=== PATIENT | male | born 1950 | race Caucasian/White ===

== ENCOUNTER → 2021-03-17 | Outpatient (CLI) | payer MEDICARE ==
[2021-03-17 12:56] LABS: HCT 48.4 % (39.0-53.0); MCH 29.2 pg (25.0-35.0); MCV 88.3 fL (80.0-100.0); Mean Platelet Volume 7.3; Platelet Count 220 k/uL (150-450); RBC 5.48 m/uL (4.30-5.90); RDW 13.8 % (11.5-15.5); WBC 6.9 k/uL (3.8-10.6)
[2021-03-17 13:04] LABS: Appearance,Urine Clear (Clear); Bilirubin,Urine Negative (Negative); Blood,Urine Negative (Negative); Color,Urine Light Yellow; Glucose,Urine (UA) Negative (Negative); Ketones,Urine Negative (Negative); Leukocyte Esterase,Urine Negative (Negative); Nitrite,Urine Negative (Negative); Protein,Urine Negative (Negative); Specific Gravity,Urine 1.012 (1.001-1.035); Urobilinogen,Urine <2.0 mg/dL (<2.0)
[2021-03-17 13:19] LABS: ALT 18 U/L (4-49); AST 20 U/L (17-59); African American GFR (CKD) >90 (>60 ml/min/1.73 sqM); Alkaline Phosphatase 99 U/L (38-126); Anion Gap 7 mmol/L; Blood Urea Nitrogen 13 mg/dL (9-20); Calcium 9.3 mg/dL (8.4-10.2); Carbon Dioxide 28 mmol/L (22-30); Chloride 103 mmol/L (98-107); Glucose 100 mg/dL (74-99); INR 0.9 (<1.2); Non-African American GFR(CKD) 86 (>60 ml/min/1.73 sqM); Partial Thromboplastin Time 24.4 sec (22.0-30.0); Potassium 4.6 mmol/L (3.5-5.1); Prothrombin Time 10.1 sec (9.0-12.0); Sodium 138 mmol/L (137-145); Total Bilirubin 1.3 mg/dL (0.2-1.3); Total Protein 6.8 g/dL (6.3-8.2)
== END | disposition home or self-care (01) ==
LOC: LABPAT 11:38
PROVIDERS: ATTEND Orthopaedic Surgery
DX: Z01.812 Encounter for preprocedural laboratory examination (principal); Z01.818 Encounter for other preprocedural examination
CPT/HCPCS: 80053; 81003; 85027; 85610; 85730; 86850; 86900; 86901; 87070

== ENCOUNTER 2021-03-29 07:40 | Day surgery (SDC) | payer MEDICARE ==
[2021-03-24 11:54] VITALS: BMI 30.6
[~2021-03-29 07:40] MED LIST: ACETAMINOPHEN TAB 500 MG TAB PO PRN; DEXAMETHASONE SOD PHOSPHATE 4 MG/ML 1 ML VIAL IV ONE; GABAPENTIN 300 MG CAP PO PRN; HYDROcodone/APAP 7.5-325MG 1 EACH TAB PO PRN; HYDROmorphone 0.2 MG/1 ML SYRINGE IVP PRN; HYDROmorphone 0.5 MG/0.5 ML SYRINGE IVP PRN; MELOXICAM 7.5 MG TAB PO PRN; MIDAZOLAM 2 MG/2 ML VIAL IV PRN; NALOXONE 0.4 MG/ML 1 ML VIAL IV PRN; ONDANSETRON 4 MG/2 ML VIAL IVP ONE; ONDANSETRON 4 MG/2 ML VIAL IVP PRN; TRANEXAMIC ACID 1,000 MG in SODIUM CHLORIDE 0.9% 100 ML IVPB PRN
[2021-03-29] MEDS ORDERED: LACTATED RINGERS 1,000 ML IV ONE ×2 (08:13→11:35)
[2021-03-29] MEDS ORDERED: SODIUM CHLORIDE 0.9% 100 ML BAG ONE (09:14)
[2021-03-29] MEDS ORDERED: fentaNYL (PF) 50 MCG/ML 2 ML AMP ONE (09:14)
[2021-03-29] MEDS ORDERED: SODIUM CHLORIDE 0.9% IRRIG 1,000 ML BTL IRRIGATION ONE (09:14)
[2021-03-29] MEDS ORDERED: SUCCINYLCHOLINE CHLORIDE VIAL 200 MG/10 ML VIAL IV ONE (09:14)
[2021-03-29] MEDS ORDERED: LIDOCAINE 1% INJ 10MG/ML (20 ML MDV) ONE (09:14)
[2021-03-29] MEDS ORDERED: PHENYLEPHRINE-0.9% NACL SYG 1,000 MCG/10 ML SYRINGE ONE (09:14)
[2021-03-29] MEDS ORDERED: ePHEDrine SULFATE/0.9% NACL/PF 50 MG/5 ML SYRINGE IV ONE (09:14)
[2021-03-29] MEDS ORDERED: HEPARIN SODIUM,PORCINE 10,000 UNIT/ML 1 ML VIAL ONE (09:14)
[2021-03-29] MEDS ORDERED: TRANEXAMIC ACID 1,000 MG/10 ML VIAL ONE (09:14)
[2021-03-29] MEDS ORDERED: PROPOFOL 10 MG/ML 20 ML VIAL IV ONE (09:14)
[2021-03-29] MEDS ORDERED: ROCURONIUM 10 MG/ML (5 ML VIAL) IV ONE (09:14)
[2021-03-29] MEDS ORDERED: HYDROmorphone (PF) 1 MG/ML ONE (09:14)
[2021-03-29] MEDS ORDERED: MIDAZOLAM 2 MG/2 ML VIAL ONE (09:14)
[2021-03-29] MEDS: ROPIVACAINE/EPI/CLONIDINE/KET 50 ML SYRINGE MISCELLANE PRN ×2 (09:48→11:21)
[2021-03-29] MEDS ORDERED: ceFAZolin 3,000 MG in SODIUM CHLORIDE 0.9% IRRIGATIO 3,000 ML IRRIGATION ONE (09:50)
--- NOTE | 2021-03-29 11:38 | P.OP ---
Date of Procedure: 03/29/21 Preoperative Diagnosis: Severe osteoarthritis right hip Postoperative Diagnosis: Severe osteoarthritis right hip Procedure(s) Performed: Right total hip arthroplasty with a direct anterior approach Implants: [employer] Polarstem standard size 5 [employer]hew R3, 3 hole hemispherical acetabular shell, 58 mm [employer] Reflection 6.5 mm cancellus screw, 20 mm 2 [employer] R3, XLPE 20 acetabular liner [employer]hew Oxinium femoral head 36 m, +8 All components were press-fit. The articulation is Oxinium on polyethylene. Anesthesia: GETA Surgeon: Radu Venegas Mini Baccarat Dealer #1: Sofia Manley Estimated Blood Loss (ml): 2,000 (871 returned with Cell Saver) Pathology: other (Femoral head) Condition: stable Disposition: PACU Indications for Procedure: After failure of conservative treatment we discussed the surgical and nonsurgical treatment options at length. Patient wishes to proceed with a total hip arthroplasty with a direct anterior approach. Complications specific to this procedure were discussed at length, including but not limited to infection, leg length discrepancy, dislocation, nerve injury, and fracture. Covid-19 was also discussed at length with the patient, and they are aware of the current policies and procedures. The patient was given the option of delaying surgery, but they elect to proceed knowing these risks. Patient is aware of all these complications and informed consent was obtained Operative Findings: The operative findings are consistent with severe osteoarthritis of the right hip Description of Procedure: Patient was seen and evaluated in the preoperative area and the consent was reviewed. The operative site was marked with a skin marker. The patient was then brought to the operating room and given preoperative antibiotics intravenously. 1 g of Tranexamic acid was also given intravenously. A general anesthetic was administered by the anesthesia department. The patient was then placed on the [place] table with the bony prominences well-padded. The hip area was then prepped with a ChloraPrep solution and draped in the usual sterile fashion. A universal timeout was then performed, which confirmed the patient's name, surgical site, ALLERGIES, and procedure being performed on the consent. Next the incision site was located at 1 cm distal to the anterior superior iliac spine along the flexion crease of the hip. The skin and subcutaneous tissues were sharply incised. Incision was carefully dissected down to the fascia overlying the tensor fascia rebecca muscle. This fascia was then incised in line with the incision. Care was taken to stay laterally in order to avoid injuring the lateral femoral cutaneous nerve. Next, using blunt finger dissection, the tensor fascia rebecca muscle was dissected off its investing fascia. The muscle was then carefully retracted laterally with a cobra retractor over the lateral neck of the femur. Next, the circumflex vessels were identified and cauterized using the AquaMantis device. The anterior hip capsule was then exposed. The capsule was then opened and an inverted T fashion. Cobra retractors were then placed intracapsularly. The retractors were maintained intracapsular throughout the procedure. The proximal femur was then visualized. A small amount of traction was placed on the leg. The femoral neck was then osteotomized appropriate level above the lesser trochanter. A small wedge of bone was then removed from the remaining femoral head. Next, using a corkscrew the femoral head was removed from the acetabulum. On gross visual inspection, the femoral head had complete loss of articular cartilage and multiple periarticular osteophytes. The femoral head was then measured. Attention was then turned to the acetabulum. The acetabulum was exposed and any remaining labrum was excised. Sequential reaming of the acetabulum was performed using fluoroscopic guidance until there was a good bed of bleeding cancellus bone. When the appropriate size was reached, a trial was then placed. The position and fit of the trial was checked with fluoroscopy. The trial was then removed. Then, using fluoroscopic guidance, the final implant was impacted at 20 of anteversion and 40 of abduction, and fully seated in the acetabulum. 2 screws were then placed in the acetabulum. Again fluoroscopy was used to check position of the screws. Prior to the liner being inserted, large osteophytes were removed from the acetabulum. As much as the osteophytes were removed as could be done safely. Next, the liner was then impacted, with a 20 elevated liner located in the anterior superior quadrant. Component locking was confirmed. Attention was then directed to the femur. With the aid of the [place] table, the femur was externally rotated to approximately 130, extended, and adducted under the opposite leg. A side hook was then placed under the proximal femur, and the side hook elevator was used to elevate the proximal femur while releasing the capsule. Retractors were then placed. A capsular release was performed, as well as a release of the conjoined tendon, which afforded excellent visualization of the proximal femur. Next, a box osteotome was used to lateralize the proximal femur. A boat hand was then used to locate the femoral canal. Sequential broaching was then performed with appropriate size which afforded excellent fixation in the proximal femur. A trial was then placed with appropriate head and neck, and the hip was gently reduced with the aid of the [place] table. Fluoroscopy was then used to check position of the components, as well as to ensure equal leg lengths. The hip was then gently dislocated and the trials were then removed. Final implants were then impacted and the hip was again reduced. Final fluoroscopic x-rays confirmed that the components were in anatomic position, as well as equal leg lengths. The hip was also taken through range of motion, and found to be stable. The hip was then copiously irrigated with antibiotic solution with pulsatile lavage. The hip was then irrigated with Irrisept solution. The soft tissues were then injected with a ropivacaine solution, which consisted of 246.25 mg of ropivacaine, 0.5 mg of epinephrine, 30 mg of Toradol, 80 g of clonidine, and 48.45 mL of sterile water, for a total of 100 mL of fluid injected. A second do se of 1 g of Tranexamic acid was also given intravenously. Any blood collected by Cell Saver was then returned to the patient at this time. The fascia was then closed with 2-0 strata fix suture. The subcutaneous tissue was closed with 3-0 Vicryl. The subcuticular tissue was closed with 3-0 strata fix suture. The skin was then closed with Exofin skin glue. After the glue and dried, and Optifoam silver impregnated dressing was applied. The patient was then transferred to the recovery room in stable condition. The vector control assistant MOLLY Aiken was required due to the complexity of surgery, and the need for skilled surgical resident for positioning, draping, exposure, retraction, and closure of the wound.
[2021-03-29] MEDS: HYDROmorphone 0.5 MG/0.5 ML SYRINGE IVP PRN ×2 (12:21→12:25)
--- NOTE | 2021-03-29 12:33 | XR ---
Fluoroscopy History: right hip arthroplasty 96 sec fl-3 images
--- NOTE | 2021-03-29 13:07 | XR ---
EXAMINATION TYPE: XR Hip Limited RT DATE OF EXAM: 03/29/2021 CLINICAL HISTORY: Postoperative evaluation TECHNIQUE: Single portable view of the right hip was submitted. FINDINGS: Noted are changes of total hip arthroplasty with femoral and acetabular components appearin g well seated. Alignment is anatomic. Postsurgical soft tissue changes are evident. IMPRESSION: Satisfactory postoperative alignment.
[2021-03-29] MEDS: HYDROcodone/APAP 7.5-325MG 1 EACH TAB PO PRN (13:52)
[2021-03-29] MEDS ORDERED: ONDANSETRON 4 MG/2 ML VIAL IVP ONE (15:35)
[2021-03-29] MEDS ORDERED: TAMSULOSIN 0.4 MG CAP.ER.24H PO ONE (17:12)
[2021-03-29 19:26] LABS: HCT 40.5 % (39.0-53.0); HGB 13.1 gm/dL (13.0-17.5); Hypochromasia Slight; MCH 29.6 pg (25.0-35.0); MCHC 32.2 g/dL (31.0-37.0); MCV 91.9 fL (80.0-100.0); Mean Platelet Volume 7.4; Platelet Count 243 k/uL (150-450); RBC 4.41 m/uL (4.30-5.90); RDW 14.4 % (11.5-15.5); WBC 25.8 k/uL (3.8-10.6)
[2021-03-29] MEDS: LACTATED RINGERS 1,000 ML IV SCH (20:01)
[2021-03-29] MEDS ORDERED: ALBUMIN HUMAN 5% (12.5gm) 250 ML BOTTLE IVPB ONE (20:15)
[2021-03-30] MEDS: SODIUM CHLORIDE 0.9% 1,000 ML IV SCH ×3 (00:09→10:08)
[2021-03-30] MEDS: ASPIRIN 325 MG TAB PO SCH ×3 (00:30→20:15)
[2021-03-30] MEDS ORDERED: SODIUM CHLORIDE 0.9% 1,000 ML IV ONE (04:27)
[2021-03-30] MEDS: LACTATED RINGERS 1,000 ML IV SCH (07:05)
[2021-03-30] MEDS: CALCIUM CARBONATE 500 MG CHEWABLE PO PRN ×2 (08:23→13:03)
[2021-03-30] MEDS ORDERED: ACETAMINOPHEN TAB 325 MG TAB PO PRN (09:48)
[2021-03-30] MEDS: MAG HYDROX/AL HYDROX/SIMETH 30 ML CUP PO PRN ×2 (10:07→15:15)
--- NOTE | 2021-03-30 10:19 | P.CONS ---
History of Present Illness - Reason for Consult Leukocytosis - History of Present Illness Patient a pleasant 71-year-old male with a known history of multi-joint primary osteoarthritis and bilateral hip pain is admitted for elective right hip arthroplasty, successfully underwent hip arthroplasty with a direct anterior approach. Patient's pain in the right hip significantly improved. Still has pain in the left hip which will probably need operative intervention as well. Patient is hypotensive with blood pressure going as low as 87 / 51. Probably secondary to perioperative hypotension patient uses 40 mg of lisinopril at home. Patient is being discharged today asked patient to hold off on lisinopril completely until seen by primary care physician which need to be within a week and during that time patient was asked to check the blood pressure 2-3 times a day and take all the readings to primary care physician. Patient does have lightheadedness secondary to hypotension and patient received IV fluids and still receiving IV fluids. Patient does have leukocytosis as well. No evidence of infection patient doesn't have any fever chills patient didn't add any cough or dysuria. Leukocytosis appears to be reactive Review of Systems REVIEW OF SYSTEMS: CONSTITUTIONAL: No fever, no malaise, no fatigue. HEENT: No recent visual problems or hearing problems. Denied any sore throat. CARDIOVASCULAR: No chest pain, orthopnea, PND, no palpitations, no syncope. PULMONARY: No shortness of breath, no cough, no hemoptysis. GASTROINTESTINAL: No diarrhea, no nausea, no vomiting, no abdominal pain. NEUROLOGICAL: No headaches, no weakness, no numbness. HEMATOLOGICAL: Denies any bleeding or petechiae. GENITOURINARY: Denies any burning micturition, frequency, or urgency. MUSCULOSKELETAL/RHEUMATOLOGICAL: Denies any joint pain, swelling, or any muscle pain. ENDOCRINE: Denies any polyuria or polydipsia. The rest of the 14-point review of systems is negative. Past Medical History Past Medical History: Hyperlipidemia, Hypertension, Osteoarthritis (OA) Additional Past Medical History / Comment(s): HIP PAIN History of Any Multi-Drug Resistant Organisms: None Reported Additional Past Surgical History / Comment(s): CYSTOSCOPY - CHECKING BLADDER" Past Anesthesia/Blood Transfusion Reactions: No Reported Reaction Past Psychological History: Depression Additional Psychological History / Comment(s): PAST HISTORY OF DEPRESSION Smoking Status: Never smoker Past Alcohol Use History: Rare Past Drug Use History: None Reported - Past Family History Mother Family Medical History: Cancer Additional Family Medical History / Comment(s): LUNG CANCER Medications and Allergies Home Medications Medication Instructions Recorded Confirmed Type Acetaminophen Tab [Tylenol] 650 mg PO Q6H PRN 03/24/21 03/24/21 History Garlic 1 each PO DAILY 03/24/21 03/24/21 History L.acidoph,Paracasei, B.lactis 1 each PO DAILY 03/24/21 03/24/21 History [Probiotic] Magnesium Oxide [[place]] 500 mg PO DAILY 03/24/21 03/24/21 History Saw [place] 500 mg PO DAILY 03/24/21 03/24/21 History Turmeric Root Extract [Turmeric] 500 mg PO DAILY 03/24/21 03/24/21 History Ubidecarenone [Co Q-10] 100 mg PO DAILY 03/24/21 03/24/21 History Aspirin 325 mg PO BID #60 tab 03/29/21 Rx Celecoxib [CeleBREX] 200 mg PO DAILY 5 Days #5 capsule 03/29/21 Rx Gabapentin 300 mg PO BID 5 Days #10 cap 03/29/21 Rx HYDROcodone/APAP 7.5-325MG [[place] 1 - 2 tab PO Q6H PRN #32 tab 03/29/21 Rx 7.5-325] Ondansetron Odt [Zofran Odt] 1 tab PO Q8HR PRN #10 tab 03/29/21 Rx Sennosides [Senokot] 2 tab PO DAILY PRN #60 tablet 03/29/21 Rx Allergies Allergy/AdvReac Type Severity Reaction Status Date / Time adhesive tape AdvReac RED SKIN Verified 03/24/21 11:03 AND ITCHING Physical Exam Vitals: Vital Signs Temp Pulse Pulse Resp BP BP Pulse Ox 03/30/21 09:55 102 H 91/55 03/30/21 07:54 97.8 F 101 H 16 98/62 98 03/30/21 03:03 87/51 03/30/21 02:59 97.7 F 90 18 89/48 95 03/29/21 21:56 97.5 F L 82 17 108/66 99 03/29/21 21:45 18 03/29/21 20:56 86 16 109/70 100 03/29/21 20:30 81 14 95/62 99 03/29/21 20:10 83 16 90/57 99 03/29/21 19:55 83 16 91/59 97 03/29/21 19:50 79 14 82/52 97 03/29/21 19:30 83 14 96/63 100 03/29/21 19:10 84 14 92/62 99 03/29/21 19:00 83 16 98/65 100 03/29/21 18:45 84 16 101/66 96 03/29/21 18:40 85 20 97/65 96 03/29/21 18:35 102 H 22 88/55 94 L 03/29/21 17:55 83 16 99/66 99 03/29/21 16:03 79 16 116/75 95 03/29/21 15:03 79 16 116/75 95 03/29/21 14:48 83 18 109/73 95 03/29/21 14:23 81 18 111/74 94 L 03/29/21 14:00 83 20 109/72 96 03/29/21 13:50 92 20 85/55 96 03/29/21 13:16 96 03/29/21 13:15 90 18 90/60 88 L 03/29/21 13:03 97 18 105/70 94 L 03/29/21 12:45 97 18 115/73 96 03/29/21 12:30 91 16 117/73 99 03/29/21 12:16 99 18 116/70 100 03/29/21 12:03 98.4 F 102 H 16 118/73 100 Intake and Output 03/29/21 03/30/21 03/30/21 22:59 06:59 14:59 Intake Total 750 Balance 750 Intake: IV 750 Other: Voiding Method Toilet Weight 111.2 kg PHYSICAL EXAMINATION: GENERAL: The patient is alert and oriented x3, not in any acute distress. Well developed, well nourished. HEENT: Pupils are round and equally reacting to light. EOMI. No scleral icterus. No conjunctival pallor. Normocephalic, atraumatic. No pharyngeal erythema. No thyromegaly. CARDIOVASCULAR: S1 and S2 present. No murmurs, rubs, or gallops. PULMONARY: Chest is clear to auscultation, no wheezing or crackles. ABDOMEN: Soft, nontender, nondistended, normoactive bowel sounds. No palpable organomegaly. MUSCULOSKELETAL: Deferred to orthopedic surgery EXTREMITIES: No cyanosis, clubbing, or pedal edema. NEUROLOGICAL: Gross neurological examination did not reveal any focal deficits. SKIN: No rashes. Results CBC & Chem 7: 03/29/21 19:10 Labs: Abnormal Lab Results - Last 24 Hours (Table) 03/29/21 Range/Units 19:10 WBC 25.8 H (3.8-10.6) k/uL Assessment and Plan Plan: -Leukocytosis: Reactive secondary to surgery no further intervention is necessary at this time -Hypotension: Expected and perioperative hypotension management as mentioned in the interval history -Essential hypertension history -Right hip arthroplasty and patient is being discharged on 325 twice a day of aspirin as DVT prophylaxis -Multi-joint primary osteoarthritis age-related
--- NOTE | 2021-03-30 12:29 | P.PN ---
Subjective Progress Note Date: 03/30/21 Principal diagnosis: Primary osteoarthritis right hip. Status post total Right hip arthroplasty, direct anterior approach. This is a pleasant 71-year-old male who is postop day #1 status post total right hip arthroplasty with direct anterior approach. He is not feeling well today. He states that his heartburn is severe this morning. When getting up off the chair his heart rate increased and blood pressure dropped. He has slight dizziness. Heart rate 102 blood pressure 91/55. He is afebrile. Objective - Vital Signs Vital signs: Vital Signs Temp 97.8 F 03/30/21 07:54 Pulse 102 H 03/30/21 09:55 Resp 16 03/30/21 07:54 BP 91/55 03/30/21 09:55 Pulse Ox 98 03/30/21 07:54 Intake & Output 03/29/21 03/30/21 03/30/21 18:59 06:59 18:59 Intake Total 3051 700 Output Total 1999 Balance 1051 700 Weight 111.2 kg 111.2 kg Intake: IV 3051 700 Output: Estimated Blood Loss 1999 Other: Voiding Method Toilet Toilet - Exam This is a 71-year-old male in no acute distress. He is alert and oriented. He is sitting up in the chair. His right hip dressing is clean, dry and intact. He has full foot and ankle motion bilaterally. Neurovascular status to the lower extremities is intact. - Labs CBC & Chem 7: 03/29/21 19:10 Labs: Abnormal Lab Results - Last 24 Hours (Table) 03/29/21 Range/Units 19:10 WBC 25.8 H (3.8-10.6) k/uL Assessment and Plan (1) Primary osteoarthritis of right hip Current Visit: Yes Status: Acute Code(s): M16.11 - UNILATERAL PRIMARY OSTEOARTHRITIS, RIGHT HIP SNOMED Code(s): 060868110130658 (2) Status post total hip replacement, right Current Visit: Yes Status: Acute Code(s): Z96.641 - PRESENCE OF RIGHT ARTIFICIAL HIP JOINT SNOMED Code(s): 012556176157 Plan: The clinical findings are discussed with the patient. Stat 12-lead EKG is ordered. Maalox is ordered for his heartburn. He'll most likely stay inpatient until tomorrow. Continue current care and continue to observe his symptoms. CBC ordered.
[2021-03-30 13:06] LABS: Basophils % (A) 0 %; Eosinophils % (A) 0 %; HCT 27.7 % (39.0-53.0); Lymphocytes # (A) 0.9 k/uL (1.0-4.8); Lymphocytes % (A) 7 %; MCH 30.8 pg (25.0-35.0); MCHC 34.8 g/dL (31.0-37.0); MCV 88.6 fL (80.0-100.0); Mean Platelet Volume 7.6; Monocytes # (A) 0.9 k/uL (0-1.0); Monocytes % (A) 6 %; Neutrophils # (A) 12.1 k/uL (1.3-7.7); Neutrophils % (A) 86 %; Platelet Count 171 k/uL (150-450); RBC 3.13 m/uL (4.30-5.90); RDW 14.3 % (11.5-15.5); WBC 14.1 k/uL (3.8-10.6)
[2021-03-30 13:11] LABS: HGB 9.7 gm/dL (13.0-17.5)
[2021-03-30] MEDS: HYDROcodone/APAP 7.5-325MG 1 EACH TAB PO PRN (15:14)
[2021-03-31 01:32] VITALS: RESP 16
[2021-03-31] MEDS: SODIUM CHLORIDE 0.9% 1,000 ML IV SCH (02:02)
[2021-03-31] MEDS: HYDROcodone/APAP 7.5-325MG 1 EACH TAB PO PRN ×2 (02:56→10:03)
[2021-03-31] MEDS: LACTATED RINGERS 1,000 ML IV SCH (05:14)
[2021-03-31 07:52] LABS: HCT 26.2 % (39.0-53.0); HGB 8.9 gm/dL (13.0-17.5); MCH 30.1 pg (25.0-35.0); MCV 88.7 fL (80.0-100.0); Mean Platelet Volume 7.6; Platelet Count 168 k/uL (150-450); RBC 2.96 m/uL (4.30-5.90); RDW 14.1 % (11.5-15.5); WBC 10.5 k/uL (3.8-10.6)
[2021-03-31 08:01] VITALS: BP 153/73; PULSE 99; TEMP 99.3
[2021-03-31] MEDS ORDERED: MAGNESIUM OXIDE 400 MG TAB PO SCH (09:00)
--- NOTE | 2021-03-31 09:32 | P.PN ---
Subjective Patient a pleasant 71-year-old male with a known history of multi-joint primary osteoarthritis and bilateral hip pain is admitted for elective right hip arthroplasty, successfully underwent hip arthroplasty with a direct anterior approach. Patient's pain in the right hip significantly improved. Still has pain in the left hip which will probably need operative intervention as well. Patient is hypotensive with blood pressure going as low as 87 / 51. Probably secondary to perioperative hypotension patient uses 40 mg of lisinopril at home. Patient is being discharged today asked patient to hold off on lisinopril completely until seen by primary care physician which need to be within a week and during that time patient was asked to check the blood pressure 2-3 times a day and take all the readings to primary care physician. Patient does have lightheadedness secondary to hypotension and patient received IV fluids and still receiving IV fluids. Patient does have leukocytosis as well. No evidence of infection patient doesn't have any fever chills patient didn't add any cough or dysuria. Leukocytosis appears to be reactive. 03/31/2021 Blood pressure is improving probably will require lisinopril but at a lower dose patient will be discharged on 10 mg of lisinopril patient by blood cell count has come down patient probably will be discharged today pain is better controlled today. Constitutional: Denied any fatigue denied any fever. Cardio vascular: denied any chest pain, palpitations Gastrointestinal denied any nausea vomiting Pulmonary: Denied any shortness of breath cough Neurologic denied any new focal deficits All inpatient medications were reviewed and appropriate changes in these medications as dictated in the interval history and assessment and plan. Objective - Vital Signs Vital signs: Vital Signs Temp 99.3 F 03/31/21 08:00 Pulse 99 03/31/21 08:00 Resp 16 03/31/21 08:00 BP 153/73 03/31/21 08:00 Pulse Ox 97 03/31/21 08:00 Intake & Output 03/30/21 03/31/21 03/31/21 18:59 06:59 18:59 Other: Voiding Method Toilet Toilet # Voids 5 2 - Exam PHYSICAL EXAMINATION: GENERAL: The patient is alert and oriented x3, not in any acute distress. Well developed, well nourished. HEENT: Pupils are round and equally reacting to light. EOMI. No scleral icterus. No conjunctival pallor. Normocephalic, atraumatic. No pharyngeal erythema. No thyromegaly. CARDIOVASCULAR: S1 and S2 present. No murmurs, rubs, or gallops. PULMONARY: Chest is clear to auscultation, no wheezing or crackles. ABDOMEN: Soft, nontender, nondistended, normoactive bowel sounds. No palpable organomegaly. MUSCULOSKELETAL: Deferred to orthopedic surgery EXTREMITIES: No cyanosis, clubbing, or pedal edema. NEUROLOGICAL: Gross neurological examination did not reveal any focal deficits. SKIN: No rashes. - Labs CBC & Chem 7: 03/31/21 06:47 Labs: Abnormal Lab Results - Last 24 Hours (Table) 03/30/21 03/31/21 Range/Units 12:25 06:47 WBC 14.1 H (3.8-10.6) k/uL RBC 3.13 L 2.96 L (4.30-5.90) m/uL Hgb 9.7 L D 8.9 L (13.0-17.5) gm/dL Hct 27.7 L 26.2 L (39.0-53.0) % Neutrophils # 12.1 H (1.3-7.7) k/uL Lymphocytes # 0.9 L (1.0-4.8) k/uL Assessment and Plan Plan: -Leukocytosis: Reactive secondary to surgery no further intervention is necessary at this time. Leukocytosis improved -Hypotension: Expected and perioperative hypotension management as mentioned in the interval history -Essential hypertension -Right hip arthroplasty and patient is being discharged on 325 twice a day of aspirin as DVT prophylaxis -Multi-joint primary osteoarthritis age-related
[2021-03-31] MEDS: ASPIRIN 325 MG TAB PO SCH (09:56)
--- NOTE | 2021-03-31 10:05 | P.DS ---
Providers Expected date of discharge: 03/31/21 Attending physician: Radu Venegas Consults: 03/29/21 12:35 Consult Physician Routine Consulting Provider: Juve Carver Consult Reason/Comments: medical management if pt does not d/c same day post op. Do you want consulting provider notified?: Yes Primary care physician: Avery Gillespie - Discharge Diagnosis(es) (1) Primary osteoarthritis of right hip Current Visit: Yes Status: Acute (2) Status post total hip replacement, right Current Visit: Yes Status: Acute Hospital Course: This is a 71-year-old male with known history of degenerative arthritis of the right hip. The patient presented for evaluation as an outpatient. After discussion and consideration patient elects to proceed with total hip arthroplasty. The patient is seen preoperatively by Dr. Venegas and medically cleared for surgery by their primary care physician. Patient is admitted to [facility] on 03/29/2021 for total hip arthroplasty. The procedure is performed without complication or sequelae. The patient is doing well postoperatively. Labs and vital signs are stable on day of discharge. On day of discharge patient's hip incision is healing well. There is minimal erythema. There is no drainage noted at this time. There is minimal soft tissue swelling to the hip and thigh. Patient has full foot and ankle motion without difficulty or pain. Calf is soft and nontender to palpation. Neurovascular status to the right lower extremity is intact. Patient is discharged home in good condition. Opioid start talking form is reviewed and signed. Please see med rec for accurate list of home medications. Plan - Discharge Summary Discharge Rx Participant: Yes New Discharge Prescriptions: New Celecoxib [CeleBREX] 200 mg PO DAILY 5 Days #5 capsule Lisinopril [Prinivil] 10 mg PO DAILY #30 tab Aspirin 325 mg PO BID #60 tab Gabapentin 300 mg PO BID 5 Days #10 cap HYDROcodone/APAP 7.5-325MG [[place] 7.5-325] 1 - 2 tab PO Q6H PRN #32 tab PRN Reason: Pain Sennosides [Senokot] 2 tab PO DAILY PRN #60 tablet PRN Reason: Constipation Ondansetron Odt [Zofran Odt] 1 tab PO Q8HR PRN #10 tab PRN Reason: Nausea Discontinued lisinopriL [Zestril] 40 mg PO DAILY No Action Magnesium Oxide [[place]] 500 mg PO DAILY L.acidoph,Paracasei, B.lactis [Probiotic] 1 each PO DAILY Turmeric Root Extract [Turmeric] 500 mg PO DAILY [place] 500 mg PO DAILY Ubidecarenone [Co Q-10] 100 mg PO DAILY Garlic 1 each PO DAILY Acetaminophen Tab [Tylenol] 650 mg PO Q6H PRN PRN Reason: Pain Discharge Medication List Acetaminophen Tab [Tylenol] 650 mg PO Q6H PRN 03/24/21 [History] Garlic 1 each PO DAILY 03/24/21 [History] L.acidoph,Paracasei, B.lactis [Probiotic] 1 each PO DAILY 03/24/21 [History] Magnesium Oxide [[place]] 500 mg PO DAILY 03/24/21 [History] Saw [place] 500 mg PO DAILY 03/24/21 [History] Turmeric Root Extract [Turmeric] 500 mg PO DAILY 03/24/21 [History] Ubidecarenone [Co Q-10] 100 mg PO DAILY 03/24/21 [History] Aspirin 325 mg PO BID #60 tab 03/29/21 [Rx] Celecoxib [CeleBREX] 200 mg PO DAILY 5 Days #5 capsule 03/29/21 [Rx] Gabapentin 300 mg PO BID 5 Days #10 cap 03/29/21 [Rx] HYDROcodone/APAP 7.5-325MG [[place] 7.5-325] 1 - 2 tab PO Q6H PRN #32 tab 03/29/21 [Rx] Ondansetron Odt [Zofran Odt] 1 tab PO Q8HR PRN #10 tab 03/29/21 [Rx] Sennosides [Senokot] 2 tab PO DAILY PRN #60 tablet 03/29/21 [Rx] Lisinopril [Prinivil] 10 mg PO DAILY #30 tab 03/31/21 [Rx] Follow up Appointment(s)/Referral(s): Avery Gillespie III, MD [Primary Care Provider] - 04/04/21 2:30 pm [facility], [NON-STAFF] - As Needed Radu Venegas DO [Doctor of Osteopathic Medicine] - 04/13/21 9:50 am Patient Instructions/Handouts: *Surgery [facility] - (Anesthesia) Discharge Instructions Outpatient Surgery, How to Use an Incentive Spirometer (DC), Anterior Hip Replacement (DC) Activity/Diet/Wound Care/Special Instructions: Weightbearing as tolerated with walker. Leave dressing intact. Dressing may be removed by home care nurse or by patient in 10 days. May shower with dressing on. If dressing become saturated, please remove. Please take aspirin 325mg twice daily for 30 days to prevent blood clots. Recommend use of compression stockings daily until follow up to help prevent swelling and blood clots. May remove at night before sleeping. Please follow-up with [facility] in 2 weeks and call with any questions or concerns, . Discharge Disposition: HOME WITH HOME HEALTH SERVICES
== END 2021-03-31 11:53 | disposition home health service (06) ==
LOC: OR 07:40 → UNDOADMOB 12:08 → 4SSUR 12:08 → OR 19:05
PROVIDERS: ATTEND Orthopaedic Surgery
DX: M16.0 Bilateral primary osteoarthritis of hip (principal); M25.751 Osteophyte, right hip; I10 Essential (primary) hypertension; R12 Heartburn; E78.5 Hyperlipidemia, unspecified; I95.9 Hypotension, unspecified; H91.90 Unspecified hearing loss, unspecified ear; R45.0 Nervousness; Z20.822 Contact with and (suspected) exposure to COVID-19; Z97.3 Presence of spectacles and contact lenses; R26.81 Unsteadiness on feet; Z86.19 Personal history of other infectious and parasitic diseases; Z82.49 Family history of ischemic heart disease and other diseases of the circulatory system; Z80.1 Family history of malignant neoplasm of trachea, bronchus and lung; Z98.890 Other specified postprocedural states; Z79.82 Long term (current) use of aspirin; Z79.1 Long term (current) use of non-steroidal anti-inflammatories (NSAID); Z79.891 Long term (current) use of opiate analgesic; Z79.899 Other long term (current) drug therapy; Z91.09 Other allergy status, other than to drugs and biological substances
CPT/HCPCS: 27130; 93005; 97116; 97110; 97530 ×2; 97161; 97535; 97165; 86891; 85025; 85027 ×2; 88300; 87635; 73501; C1776; P9045; J2250; J0330; J1644; J1100; J0690 ×2; J2405 ×2; J2001; J3010; J1170 ×3; J2370; J2704; 86850; 86900; 86901

== ENCOUNTER → 2021-08-05 | Outpatient (CLI) | payer MEDICARE ==
[2021-08-05 12:23] LABS: Appearance,Urine Clear (Clear); Bilirubin,Urine Negative (Negative); Blood,Urine Negative (Negative); Color,Urine Light Yellow; Glucose,Urine (UA) Negative (Negative); Ketones,Urine Negative (Negative); Leukocyte Esterase,Urine Negative (Negative); Nitrite,Urine Negative (Negative); PH, Urine 6.5 (5.0-8.0); Protein,Urine Negative (Negative); Specific Gravity,Urine 1.011 (1.001-1.035); Urobilinogen,Urine <2.0 mg/dL (<2.0)
[2021-08-05 12:56] LABS: HCT 45.5 % (39.0-53.0); MCV 88.1 fL (80.0-100.0); Mean Platelet Volume 7.5; Platelet Count 240 k/uL (150-450); RBC 5.16 m/uL (4.30-5.90); RDW 14.4 % (11.5-15.5); WBC 6.1 k/uL (3.8-10.6)
[2021-08-05 13:05] LABS: INR 0.9 (<1.2); Partial Thromboplastin Time 24.8 sec (22.0-30.0)
[2021-08-05 13:22] LABS: ALT 13 U/L (4-49); AST 19 U/L (17-59); African American GFR (CKD) >90 (>60 ml/min/1.73 sqM); Albumin 3.5 g/dL (3.5-5.0); Alkaline Phosphatase 88 U/L (38-126); Anion Gap 8 mmol/L; Blood Urea Nitrogen 17 mg/dL (9-20); Calcium 8.9 mg/dL (8.4-10.2); Carbon Dioxide 23 mmol/L (22-30); Chloride 107 mmol/L (98-107); Glucose 103 mg/dL (74-99); Non-African American GFR(CKD) 87 (>60 ml/min/1.73 sqM); Potassium 4.7 mmol/L (3.5-5.1); Sodium 138 mmol/L (137-145); Total Bilirubin 1.1 mg/dL (0.2-1.3); Total Protein 6.2 g/dL (6.3-8.2)
== END | disposition home or self-care (01) ==
LOC: LABPAT 10:40
PROVIDERS: ATTEND Orthopaedic Surgery
DX: Z01.812 Encounter for preprocedural laboratory examination (principal)
CPT/HCPCS: 36415; 80053; 81003; 85027; 85610; 85730; 87070

== ENCOUNTER 2021-08-16 09:38 | Day surgery (SDC) | payer MEDICARE ==
[2021-08-11 17:54] VITALS: BMI 30.9
[~2021-08-16 09:38] MED LIST changes: -DEXAMETHASONE SOD PHOSPHATE 4 MG/ML 1 ML VIAL IV ONE; -HYDROcodone/APAP 7.5-325MG 1 EACH TAB PO PRN; -HYDROmorphone 0.2 MG/1 ML SYRINGE IVP PRN; -MIDAZOLAM 2 MG/2 ML VIAL IV PRN; -NALOXONE 0.4 MG/ML 1 ML VIAL IV PRN; -ONDANSETRON 4 MG/2 ML VIAL IVP PRN
[2021-08-16] MEDS ORDERED: LACTATED RINGERS 1,000 ML IV ONE (10:12)
[2021-08-16] MEDS ORDERED: NALOXONE 0.4 MG/ML 1 ML VIAL IV PRN (10:48)
[2021-08-16] MEDS ORDERED: HYDROmorphone 0.2 MG/1 ML SYRINGE IVP PRN (10:48)
[2021-08-16] MEDS ORDERED: ONDANSETRON 4 MG/2 ML VIAL IVP PRN (10:48)
[2021-08-16] MEDS ORDERED: MAGNESIUM HYDROXIDE 2,400 MG/10 ML CUP PO PRN (10:48)
[2021-08-16] MEDS ORDERED: HYDROmorphone 0.5 MG/0.5 ML SYRINGE IVP PRN ×2 (10:48)
[2021-08-16] MEDS ORDERED: HYDROcodone/APAP 7.5-325MG 1 EACH TAB PO PRN (10:51)
[2021-08-16] MEDS ORDERED: SODIUM CHLORIDE 0.9% IRRIG 1,000 ML BTL IRRIGATION ONE (11:01)
[2021-08-16] MEDS ORDERED: TRANEXAMIC ACID 1,000 MG/10 ML VIAL ONE (11:01)
[2021-08-16] MEDS ORDERED: HEPARIN SODIUM,PORCINE 10,000 UNIT/ML 1 ML VIAL ONE (11:01)
[2021-08-16] MEDS ORDERED: ePHEDrine SULFATE/0.9% NACL/PF 50 MG/5 ML SYRINGE IV ONE (11:01)
[2021-08-16] MEDS ORDERED: PHENYLEPHRINE-0.9% NACL SYG 1,000 MCG/10 ML SYRINGE ONE (11:01)
[2021-08-16] MEDS ORDERED: PROPOFOL 10 MG/ML 20 ML VIAL IV ONE (11:01)
[2021-08-16] MEDS ORDERED: fentaNYL (PF) 50 MCG/ML 2 ML AMP ONE (11:01)
[2021-08-16] MEDS ORDERED: MIDAZOLAM 2 MG/2 ML VIAL ONE (11:01)
[2021-08-16] MEDS ORDERED: SODIUM CHLORIDE 0.9% 100 ML BAG ONE (11:01)
[2021-08-16] MEDS ORDERED: ceFAZolin 1,000 MG in SODIUM CHLORIDE 0.9% 1,000 ML IRRIGATION ONE (11:06)
[2021-08-16] MEDS: ROPIVACAINE/EPI/CLONIDINE/KET 50 ML SYRINGE MISCELLANE PRN ×2 (11:46→12:32)
--- NOTE | 2021-08-16 12:40 | P.OP ---
Date of Procedure: 08/16/21 Preoperative Diagnosis: Severe osteoarthritis left hip Postoperative Diagnosis: Severe osteoarthritis left hip Procedure(s) Performed: Left total hip arthroplasty a direct anterior approach Implants: [employer] Polarstem standard size 5 [employer] R3, 3 hole hemispherical acetabular shell, 60 mm [employer] Reflection 6.5 mm cancellus screw, 25 mm 2 [employer] R3, XLPE 20 acetabular liner [employer] Oxinium femoral head 36 m, +0 All components were press-fit. The articulation is Oxinium on polyethylene. Anesthesia: spinal Surgeon: Radu Venegas Beef Boner #1: Radu Venegas Estimated Blood Loss (ml): 500 (195 mL returned with Cell Saver) Pathology: other (Femoral head) Condition: stable Disposition: PACU Indications for Procedure: After failure of conservative treatment we discussed the surgical and nonsurgical treatment options at length. Patient wishes to proceed with a total hip arthroplasty with a direct anterior approach. Complications specific to this procedure were discussed at length, including but not limited to infection, leg length discrepancy, dislocation, nerve injury, and fracture. Covid-19 was also discussed at length with the patient, and they are aware of the current policies and procedures. The patient was given the option of delaying surgery, but they elect to proceed knowing these risks. Patient is aware of all these complications and informed consent was obtained Operative Findings: The operative findings are consistent with severe osteoarthritis of the left hip Description of Procedure: Patient was seen and evaluated in the preoperative area and the consent was reviewed. The operative site was marked with a skin marker. The patient was then brought to the operating room and given preoperative antibiotics intravenously. 1 g of Tranexamic acid was also given intravenously. A spinal anesthetic was administered by the anesthesia department. The patient was then placed on the [place] table with the bony prominences well-padded. The hip area was then prepped with a ChloraPrep solution and draped in the usual sterile fashion. A universal timeout was then performed, which confirmed the patient's name, surgical site, ALLERGIES, and procedure being performed on the consent. Next the incision site was located at 1 cm distal to the anterior superior iliac spine along the flexion crease of the hip. The skin and subcutaneous tissues were sharply incised. Incision was carefully dissected down to the fascia overlying the tensor fascia rebecca muscle. This fascia was then incised in line with the incision. Care was taken to stay laterally in order to avoid injuring the lateral femoral cutaneous nerve. Next, using blunt finger dissection, the tensor fascia rebecca muscle was dissected off its investing fascia. The muscle was then carefully retracted laterally with a cobra retractor over the lateral neck of the femur. Next, the circumflex vessels were identified and cauterized using the AquaMantis device. The anterior hip capsule was then exposed. The capsule was then opened and an inverted T fashion. Cobra retractors were then placed intracapsularly. The retractors were maintained intracapsular throughout the procedure. The proximal femur was then visualized. A small amount of traction was placed on the leg. The femoral neck was then osteotomized appropriate level above the lesser trochanter. A small wedge of bone was then removed from the remaining femoral head. Next, using a corkscrew the femoral head was removed from the acetabulum. On gross visual inspection, the femoral head had complete loss of articular cartilage and multiple periarticular osteophytes. The femoral head was then measured. Attention was then turned to the acetabulum. The acetabulum was exposed and any remaining labrum was excised. Sequential reaming of the acetabulum was performed using fluoroscopic guidance until there was a good bed of bleeding cancellus bone. When the appropriate size was reached, a trial was then placed. The position and fit of the trial was checked with fluoroscopy. The trial was then removed. Then, using fluoroscopic guidance, the final implant was impacted at 20 of anteversion and 40 of abduction, and fully seated in the acetabulum. 2 screws were then placed in the acetabulum. Again fluoroscopy was used to check position of the screws. Next, the liner was then impacted, with a 20 elevated liner located in the anterior superior quadrant. Component locking was confirmed. Attention was then directed to the femur. With the aid of the [place] table, the femur was externally rotated to approximately 130, extended, and adducted under the opposite leg. A side hook was then placed under the proximal femur, and the side hook elevator was used to elevate the proximal femur while releasing the capsule. Retractors were then placed. A capsular release was performed, as well as a release of the conjoined tendon, which afforded excellent visualization of the proximal femur. Next, a box osteotome was used to lateralize the proximal femur. A cleaning handyman was then used to locate the femoral canal. Sequential broaching was then performed with appropriate size which afforded excellent fixation in the proximal femur. A trial was then placed with appropriate head and neck, and the hip was gently reduced with the aid of the [place] table. Fluoroscopy was then used to check position of the components, as well as to ensure equal leg lengths. The hip was then gently dislocated and the trials were then removed. Final implants were then impacted and the hip was again reduced. Final fluoroscopic x-rays confirmed that the components were in anatomic position, as well as equal leg lengths. The hip was also taken through range of motion, and found to be stable. The hip was then copiously irrigated with antibiotic solution with pulsatile lavage. The hip was then irrigated with Irrisept solution. The soft tissues were then injected with a ropivacaine solution, which consisted of 246.25 mg of ropivacaine, 0.5 mg of epinephrine, 30 mg of Toradol, 80 g of clonidine, and 48.45 mL of sterile water, for a total of 100 mL of fluid injected. A second dose of 1 g of Tranexamic acid was also given intravenously. Any blood collected by Cell Saver was then returned to the patient at this time. The fascia was then closed with 2-0 strata fix suture. The subcutaneous tissue was closed with 3-0 Vicryl. The subcuticular tissue was closed with 3-0 strata fix suture. The skin was then closed with Exofin skin glue. After the glue and dried, and Optifoam silver impregnated dressing was applied. The patient was then transferred to the recovery room in stable condition. The bilingual office assistant MOLLY Aiken was required due to the complexity of surgery, and the need for skilled director surgical for positioning, draping, exposure, retraction, and closure of the wound.
--- NOTE | 2021-08-16 13:29 | XR ---
EXAMINATION TYPE: XR Hip Limited LT DATE OF EXAM: 08/16/2021 COMPARISON: None HISTORY: Postop replacement TECHNIQUE: AP left hip FINDINGS: Femoral prosthesis and acetabular component is in place. No acute fractures are evident. Po stsurgical soft tissue changes are present. IMPRESSION: 1. No acute fracture post left hip replacement
[2021-08-16] MEDS ORDERED: GABAPENTIN 300 MG CAP PO PRN (13:32)
--- NOTE | 2021-08-16 13:57 | XR ---
Fluoroscopy INDICATION: Pain FINDINGS: Fluoroscopy time: 0.6 seconds. Images obtained: 5. IMPRESSIONS: 1. Documentation of fluoroscopy.
[2021-08-16] MEDS: LACTATED RINGERS 1,000 ML IV SCH (14:07)
[2021-08-16] MEDS: SODIUM CHLORIDE 0.9% 1,000 ML IV SCH (14:07)
--- NOTE | 2021-08-16 14:23 | FL ---
Fluoroscopy INDICATION: Pain FINDINGS: Fluoroscopy time: 36 seconds. Images obtained: 0. IMPRESSIONS: 1. Documentation of fluoroscopy.
[2021-08-16] MEDS: HYDROcodone/APAP 7.5-325MG 1 EACH TAB PO PRN (17:27)
[2021-08-16] MEDS: ASPIRIN 325 MG TAB PO SCH (19:44)
--- NOTE | 2021-08-16 19:49 | CONS ---
CONSULTATION DATE OF SERVICE: 08/16/2021. REASON FOR CONSULTATION: Advice regarding hypertension, multiple medical issues requested by Dr. Venegas. HISTORY OF PRESENT ILLNESS: This 71-year-old gentleman with past medical history of hypertension, hyperlipidemia, GERD, DJD being followed Dr. Gillespie in the outpatient setting, underwent left total hip joint arthroplasty by direct anterior approach. The patient tolerated the procedure well. During the last surgery, the patient had apparently presyncope and also hypotension related to anemia, but currently the hemoglobin is not available. The preop hemoglobin is 15. There is no history of fever, rigors, no headache, loss of conscious or seizures at this time. PAST MEDICAL HISTORY: History of hypertension, hyperlipidemia, history of DJD, history of GERD, history of previous postop hypotension. MEDICATIONS: Medications prior to admission include: Prinivil, probiotic, [place], Tylenol Senokot, Zofran, Neurontin, gabapentin, aspirin. ALLERGIES: ADHESIVE TAPE. FAMILY HISTORY: Lung cancer in the family. SOCIAL HISTORY: No history of smoking. No history of alcohol intake. REVIEW OF SYSTEMS: ENT: No diminished vision. No diminished hearing. CARDIOVASCULAR: No angina or palpitations. RESPIRATION: No cough. No hemoptysis. GI no nausea or vomiting. no dysuria. NERVOUS SYSTEM: No numbness, weakness. ALLERGY/IMMUNOLOGY: No asthma or hayfever. MUSCULOSKELETAL as mentioned earlier. HEMATOLOGY/ONCOLOGY: No history of anemia. ENDOCRINE: No history of diabetes or hypothyroidism. CONSTITUTIONAL: As mentioned earlier. DERMATOLOGY: Negative. RHEUMATOLOGY negative. PSYCHIATRY is negative. PHYSICAL EXAMINATION: Patient is alert, oriented times three. Pulse 67, blood pressure 127/72, respiration 20, temperature normal, pulse ox 93% on room air. HEENT: Conjunctivae normal. Oral mucosa moist. NECK is no jugular venous distention. No carotid bruit. No lymph node enlargement. CARDIOVASCULAR systems: S1, S2 muffled. RESPIRATORY: Breath sounds diminished in the bases. No rhonchi. No crackles. ABDOMEN: Soft, nontender. No mass palpable. LEGS: Status post left hip arthroplasty. NERVOUS SYSTEM: No focal deficits. LYMPHATICS: No lymph nodes palpable in the neck, axillae or groin. SKIN: No ulcer, rash or bleeding. JOINTS: As mentioned earlier. LABS: The preop labs as mentioned earlier. CBC within normal limits. Coags are normal. Covid 19 is negative. BMP is also within normal limits. ASSESSMENT: 1. Status post left total hip joint arthroplasty. 2. Hypertension. 3. Hyperlipidemia. 4. Gastroesophageal reflux disease. 5. Degenerative joint disease. 6. History of cystoscopy. 7. FULL CODE. RECOMMENDATIONS AND DISCUSSION: This 71-year-old gentleman presented with multiple medical problems, we will monitor the patient closely, continue the current management and symptomatic treatment. Otherwise, I would recommend continue the home medications. Hold off on lisinopril at this time. Continue IV fluids. Otherwise, repeat labs will be ordered tomorrow and we will follow the patient closely. Thank you Dr. Venegas for letting us participate in the care of this patient. Recommend close followup with Dr. Gillespie after discharge. OVIDIO / ALENAN: [id number] /
[2021-08-16] MEDS ORDERED: ASPIRIN 325 MG TAB PO SCH (21:00)
[2021-08-16] MEDS ORDERED: SENNOSIDES-DOCUSATE SODIUM 1 EACH TAB PO SCH (21:00)
[2021-08-17 01:50] VITALS: RESP 16
[2021-08-17] MEDS: SODIUM CHLORIDE 0.9% 1,000 ML IV SCH (02:15)
[2021-08-17] MEDS: HYDROcodone/APAP 7.5-325MG 1 EACH TAB PO PRN (04:07)
[2021-08-17 08:11] VITALS: BP 145/77; PULSE 70; TEMP 98.1
[2021-08-17] MEDS: ASPIRIN 325 MG TAB PO SCH (08:12)
[2021-08-17] MEDS: LACTATED RINGERS 1,000 ML IV SCH (08:12)
[2021-08-17] MEDS ORDERED: LACTOBACILLUS ACIDOPH & BULGAR 1 EACH PACKET PO SCH (09:00)
[2021-08-17 09:34] LABS: Basophils # (A) 0.02 X 10*3/uL (0.00-0.10); Basophils % (A) 0.2 %; Eosinophils # (A) 0.04 X 10*3/uL (0.04-0.35); Eosinophils % (A) 0.4 %; HCT 35.5 % (39.6-50.0); HGB 11.5 g/dL (13.0-17.0); Lymphocytes # (A) 1.27 X 10*3/uL (0.90-5.00); Lymphocytes % (A) 12.1 %; MCH 28.6 pg (27.0-32.0); MCHC 32.4 g/dL (32.0-37.0); MCV 88.3 fL (80.0-97.0); Mean Platelet Volume 10.4 fL (9.5-12.2); Monocytes # (A) 1.06 X 10*3/uL (0.20-1.00); Monocytes % (A) 10.1 %; Neutrophils # (A) 8.03 X 10*3/uL (1.80-7.70); Neutrophils % (A) 76.7 %; Platelet Count 198 X 10*3/uL (140-440); RBC 4.02 X 10*6/uL (4.40-5.60); RDW 15.4 % (11.5-14.5); WBC 10.47 X 10*3/uL (4.50-10.00)
--- NOTE | 2021-08-17 10:16 | P.DS ---
Providers Expected date of discharge: 08/17/21 Attending physician: Radu Venegas Consults: 08/16/21 10:48 Consult Physician Routine Consulting Provider: Faith Arce Consult Reason/Comments: medical management Do you want consulting provider notified?: Yes Primary care physician: Avery Gillespie - Discharge Diagnosis(es) (1) Osteoarthritis of left hip Current Visit: Yes Status: Acute (2) Status post total hip replacement, left Current Visit: Yes Status: Acute Hospital Course: This is a 71-year-old male with known history of degenerative arthritis of the left hip. The patient presents for evaluation. After discussion and consideration patient elects to proceed with total left hip arthroplasty with anterior approach. The patient is seen preoperatively by his primary care physician and cleared for surgery. Patient is admitted to [facility] on 08/16/2021 for total hip arthroplasty. The procedures performed without complication or sequelae. The patient is doing well postoperatively. Labs and vital signs are stable on day of discharge. On day of discharge patient's hip incision is healing well. There is minimal erythema. There is no drainage noted at this time. There is minimal soft tissue swelling to the hip and thigh. Patient has full foot and ankle motion without difficulty or pain. Neurovascular status to the left lower extremity is intact. Patient is discharged to home in good condition. Please see med rec for accurate list of home medications. Patient Condition at Discharge: Good Plan - Discharge Summary Discharge Rx Participant: Yes New Discharge Prescriptions: New Aspirin 325 mg PO BID #60 tab Sennosides [Senokot] 2 tab PO DAILY PRN #60 tablet PRN Reason: Constipation Ondansetron Odt [Zofran Odt] 1 tab PO Q8HR PRN #10 tab PRN Reason: Nausea Gabapentin 300 mg PO BID 30 Days #60 cap HYDROcodone/APAP 7.5-325MG [[place] 7.5-325] 1 - 2 tab PO Q6H PRN #32 tab PRN Reason: Pain No Action L.acidoph,Paracasei, B.lactis [Probiotic] 1 each PO DAILY Lisinopril [Prinivil] 10 mg PO DAILY #30 tab Acetaminophen Tab [Tylenol] 650 mg PO Q6H PRN PRN Reason: Pain HYDROcodone/APAP 7.5-325MG [[place] 7.5-325] 1 - 2 tab PO Q6H PRN #32 tab PRN Reason: Pain Discharge Medication List Acetaminophen Tab [Tylenol] 650 mg PO Q6H PRN 03/24/21 [History] L.acidoph,Paracasei, B.lactis [Probiotic] 1 each PO DAILY 03/24/21 [History] HYDROcodone/APAP 7.5-325MG [[place] 7.5-325] 1 - 2 tab PO Q6H PRN #32 tab 03/29/21 [Rx] Lisinopril [Prinivil] 10 mg PO DAILY #30 tab 03/31/21 [Rx] Aspirin 325 mg PO BID #60 tab 08/16/21 [Rx] Gabapentin 300 mg PO BID 30 Days #60 cap 08/16/21 [Rx] HYDROcodone/APAP 7.5-325MG [[place] 7.5-325] 1 - 2 tab PO Q6H PRN #32 tab 08/16/21 [Rx] Ondansetron Odt [Zofran Odt] 1 tab PO Q8HR PRN #10 tab 08/16/21 [Rx] Sennosides [Senokot] 2 tab PO DAILY PRN #60 tablet 08/16/21 [Rx] Follow up Appointment(s)/Referral(s): Avery Gillespie III, MD [Primary Care Provider] - 1 Week [facility], [NON-STAFF] - ([facility] will call you to arrange the time for you first home physical therapy visit.) Radu Venegas DO [Doctor of Osteopathic Medicine] - 09/01/21 1:30 pm Activity/Diet/Wound Care/Special Instructions: Weightbearing as tolerated with walker. Leave dressing intact. Dressing may be removed by home care nurse or by patient in 7 days. Then change dressing twice daily until follow up. May shower with initial dressing intact and after removal. If dressing become saturated, please remove. Please take aspirin 325mg twice daily for 30 days to prevent blood clots. Recommend use of compression stockings daily until follow up to help prevent swelling and blood clots. May remove at night before sleeping. Please follow-up with [facility] in 2 weeks and call with any questions or concerns, . Discharge Disposition: HOME WITH HOME HEALTH SERVICES
[2021-08-17 10:53] LABS: African American GFR (CKD) 88.6 (60.0-200.0); Anion Gap 6.3 mmol/L (4.00-12.00); Calcium 8.1 mg/dL (8.7-10.3); Carbon Dioxide 25.7 mmol/L (21.6-31.8); Non-African American GFR(CKD) 76.5 (60.0-200.0); Potassium 4.1 mmol/L (3.5-5.5)
--- NOTE | 2021-08-17 20:50 | P.PN ---
Subjective Progress Note Date: 08/17/21 HPI This is a 71 year old gentleman with a past medical history of hypertension, hyperlipidemia, GERD, DJD, being followed by Dr Gillespie int he outpatient setting. Pt underwent left total hip joint arthroplasty by direct anterior approach. The patient tolerated the procedure well. During the last surgery, the patient had apparently presyncope and also hypotension related to anemia, but currently hemoglobin is not available. The preop hemoglobin is 15. There is no history of fever, rigors, no headache, loss of consciousness or seizures at this time. 08/17/2021 Patient is evaluated sitting up in the chair today with his at the bedside. Pt is Post-op day #1 left hip total arthroplasty. He reports minimal discomfort to the left hip, which is being controlled with norco. He was evaluated by PT and OT today, and will continue with PT therapy at home once discharged. Patient denies any dizziness, lightheadedness, chest pain post op. He denies n/v/d. He states he is passing gas, denies a BM. He is urinating without difficulty. Lisinopril was held, and BP has remained stable. Currently 145/77, pt will be able to resume lisinopril on discharge. Pt has remained afebrile, oxygenation 96% on room air. hgb on discharge was 11.5, it was 15 postoperatively. WBC is 10.47. Pt is anticipating being discharged today from orthopedic services. REVIEW OF SYSTEMS: CONSTITUTIONAL: No fever, no malaise, no fatigue. HEENT: No recent visual problems or hearing problems. Denied any sore throat. CARDIOVASCULAR: No chest pain, orthopnea, PND, no palpitations, no syncope. PULMONARY: No shortness of breath, no cough, no hemoptysis. GASTROINTESTINAL: Denies emesis or diarrhea. Reports mild nausea NEUROLOGICAL: No headaches, no weakness, no numbness. GENITOURINARY: Denies any burning micturition, frequency, or urgency. MUSCULOSKELETAL: Reports mild left hip pain, controlled with norco. Extremities: plus 2 bilateral dorsalis pedis. mild non pitting edema to the left leg Objective - Vital Signs Vital signs: Vital Signs Temp 98.1 F 08/17/21 08:00 Pulse 70 08/17/21 08:00 Resp 16 08/17/21 08:00 BP 145/77 08/17/21 08:00 Pulse Ox 96 08/17/21 08:00 Intake & Output 08/16/21 08/17/21 08/17/21 18:59 06:59 18:59 Intake Total 951 Output Total 500 1400 Balance 451 -1400 Weight 113.2 kg Intake: IV 951 Output: Urine 1400 Estimated Blood Loss 500 Other: Voiding Method Urinal # Bowel Movements 0 - Constitutional General appearance: Present: average body habitus - EENT Eyes: Present: PERRLA, normal appearance - Respiratory Respiratory: negative: wheezing (lungs sounds are clear to auscultation) - Cardiovascular Rhythm: regular Heart sounds: normal: S1, S2 - Peripheral edema leg Peripheral Edema: left: Trace - Peripheral pulses dorsalis pedis Peripheral Pulses: right: Normal - Gastrointestinal General gastrointestinal: Present: normal bowel sounds - Psychiatric Psychiatric: Present: A&O x's 3 - Labs CBC & Chem 7: 08/17/21 06:05 08/17/21 06:05 Labs: Abnormal Lab Results - Last 24 Hours (Table) 08/17/21 08/17/21 Range/Units 06:05 06:05 WBC 10.47 H (4.50-10.00) X 10*3/uL RBC 4.02 L (4.40-5.60) X 10*6/uL Hgb 11.5 L (13.0-17.0) g/dL Hct 35.5 L (39.6-50.0) % RDW 15.4 H (11.5-14.5) % Immature Gran # 0.05 H (0.00-0.04) X 10*3/uL Neutrophils # 8.03 H (1.80-7.70) X 10*3/uL Monocytes # 1.06 H (0.20-1.00) X 10*3/uL BUN/Creatinine Ratio 21.00 H (12.00-20.00) Ratio Calcium 8.1 L (8.7-10.3) mg/dL Assessment and Plan Assessment: Status post left total hip arthroplasty Osteoarthritis Hypertension Leukocytotis, reactive in nature r/t surgery Anemia, most likely blood loss from surgery - repeat levels in 2-[address] Phillips office Hyperlipidemia Gastroesophageal reflux disease Degenerative joint disease History of cystoscopy FULL CODE Plan: Lisinopril was placed on hold postoperatively to monitor for hypotension. Pt can resume on discharge. Pt will need a CBC completed in 2-[address] Phillips office to monitor hgb. All other recommendations from orthopedic services. Follow up with Dr Venegas and Dr Gillespie in the office on discharge. Thank you for this consultation and allowing us to participate in the care of this patient. Time with Patient: Greater than 30
== END 2021-08-17 12:30 | disposition home health service (06) ==
LOC: OR 09:38 → 4SSUR 14:02 → OR 08-17 12:30
PROVIDERS: ATTEND Orthopaedic Surgery
DX: M16.12 Unilateral primary osteoarthritis, left hip (principal); Z20.822 Contact with and (suspected) exposure to COVID-19; I10 Essential (primary) hypertension; E78.5 Hyperlipidemia, unspecified; H91.90 Unspecified hearing loss, unspecified ear; Z96.641 Presence of right artificial hip joint; Z91.040 Latex allergy status
CPT/HCPCS: 97161; 97535; 97165; 86891; 86900; 86901; 80048; 85025; 86850; 88300; 87635; 73501; 27130; C1776; J2250; J1644; J0690 ×3; J2405; J3010; J2370; J2704

== ENCOUNTER → 2023-04-06 | Outpatient (CLI) | payer MEDICARE ==
[2023-04-06 20:44] LABS: Basophils # (A) 0.07 X 10*3/uL (0.00-0.10); Basophils % (A) 0.9 %; Eosinophils # (A) 0.13 X 10*3/uL (0.04-0.35); Eosinophils % (A) 1.6 %; HCT 48.2 % (39.6-50.0); HGB 15.3 g/dL (13.0-17.0); Immature Grans, Automated 0.2 %; Lymphocytes # (A) 1.28 X 10*3/uL (0.90-5.00); Lymphocytes % (A) 15.6 %; MCH 28.9 pg (27.0-32.0); MCHC 31.7 g/dL (32.0-37.0); MCV 91.1 fL (80.0-97.0); Monocytes # (A) 0.72 X 10*3/uL (0.20-1.00); Monocytes % (A) 8.8 %; NRBC Per 100 WBC 0 /100 WBCS (0.0-0.0); Neutrophils # (A) 5.97 X 10*3/uL (1.80-7.70); Neutrophils % (A) 72.9 %; Platelet Count 229 X 10*3/uL (140-440); RBC 5.29 X 10*6/uL (4.40-5.60); RDW 13.7 % (11.5-14.5); WBC 8.19 X 10*3/uL (4.50-10.00)
[2023-04-06 21:11] LABS: African American GFR (CKD) 77.9 (60.0-200.0); Albumin 4.6 g/dL (3.8-4.9); Albumin/Globulin Ratio 2.09 (1.60-3.17); Anion Gap 12.4 mmol/L (10.00-18.00); BUN/Creat Ratio 15.64 Ratio (12.00-20.00); Blood Urea Nitrogen 17.2 mg/dL (9.0-27.0); Calcium 9.6 mg/dL (8.7-10.3); Carbon Dioxide 24.6 mmol/L (20.0-27.5); Globulin 2.2 g/dL (1.6-3.3); Non-African American GFR(CKD) 67.2 (60.0-200.0); Potassium 4.9 mmol/L (3.5-5.5); Total Bilirubin 1.1 mg/dL (0.30-1.20); Total Protein 6.8 g/dL (6.2-8.2)
[2023-04-07 12:51] LABS: T4/T8 Ratio (CD4:CD8) 4.6 (1.0-3.7)
== END | disposition home or self-care (01) ==
LOC: LABWHC1 14:36
PROVIDERS: ATTEND Dermatology
DX: C84.00 Mycosis fungoides, unspecified site (principal)
CPT/HCPCS: 36415; 80053; 85025; 86355; 86357; 86359; 86360

== ENCOUNTER → 2024-05-05 | Outpatient (CLI) | payer MEDICARE ==
[2024-05-05 19:14] LABS: Basophils # (A) 0.06 X 10*3/uL (0.00-0.10); Basophils % (A) 1.2 %; Eosinophils # (A) 0.08 X 10*3/uL (0.04-0.35); Eosinophils % (A) 1.6 %; HCT 48.3 % (39.6-50.0); HGB 15.5 g/dL (13.0-17.0); Lymphocytes % (A) 21.7 %; MCH 29.6 pg (27.0-32.0); MCHC 32.1 g/dL (32.0-37.0); MCV 92.2 FL (80.0-97.0); Mean Platelet Volume 10.7 FL (9.5-12.2); Monocytes # (A) 0.44 X 10*3/uL (0.20-1.00); Monocytes % (A) 8.7 %; NRBC Per 100 WBC 0 X 10*3/uL (0.00-0.01); Neutrophils # (A) 3.37 X 10*3/uL (1.80-7.70); Neutrophils % (A) 66.6 %; Platelet Count 219 X 10*3/uL (140-440); RBC 5.24 X 10*6/uL (4.40-5.60); RDW 13.7 % (11.5-14.5); WBC 5.06 X 10*3/uL (4.50-10.00)
[2024-05-05 19:38] LABS: ALT 21 U/L (10-49); AST 15 U/L (14-35); Albumin 4.5 g/dL (3.8-4.9); Albumin/Globulin Ratio 2.25 Ratio (1.60-3.17); Alkaline Phosphatase 90 U/L (41-126); BUN/Creat Ratio 13.56 Ratio (12.00-20.00); Blood Urea Nitrogen 12.2 mg/dL (9.0-27.0); Calcium 9.1 mg/dL (8.7-10.3); Chloride 105 mmol/L (96-109); Glucose 101 mg/dL (70-110); Potassium 4.5 mmol/L (3.5-5.5); Sodium 141 mmol/L (135-145); Total Bilirubin 1.3 mg/dL (0.3-1.2); Total Protein 6.5 g/dL (6.2-8.2)
== END | disposition home or self-care (01) ==
LOC: LABWHC1 10:53
PROVIDERS: ATTEND Nurse Practitioner Family
DX: C84.00 Mycosis fungoides, unspecified site (principal); L57.8 Other skin changes due to chronic exposure to nonionizing radiation
CPT/HCPCS: 36415; 80053; 85025

== ENCOUNTER → 2024-07-10 | Outpatient (CLI) | payer MEDICARE ==
--- NOTE | 2024-08-04 14:47 | MR ---
Site ID [facility] Patient Leonid Burdick H ID [id number] Order # Procedure MR lumbar spine wo con EXAMINATION TYPE: MR lumbar spine wo con DATE OF EXAM: 07/10/2024 1:44 PM CLINICAL INDICATION: M48.016 Lumbar stenosis Feet and leg hurt COMPARISON: None TECHNIQUE: Multi planar, multi sequence imaging was performed utilizing: T1-weighted, T2-weighted, a nd turbo inversion recovery imaging of the lumbar spine. IV Contrast: cc . (None if empty) FINDINGS: Alignment: The lumbar vertebral bodies have preserved heights and alignment. Cord: The conus medullaris and the distal spinal cord appear unremarkable with regards to their signa l intensity and morphology. Bones/Discs: Degeneration changes throughout the spine with osteophyte formation and facet joint arth ropathy. Multilevel disc desiccation and disc space narrowing. Reactive inversion recovery edema with in the adjoining endplates of L2-L3. T12-L1: No evidence of significant spinal canal stenosis or neural foraminal stenosis. L1-L2: No evidence of significant spinal canal stenosis or neural foraminal stenosis. L2-L3: Disc protrusion centrally suggested which abuts the nerve roots. facet joint arthropathy resul t in severe spinal canal and severe bilateral neural foraminal stenosis. L3-L4: Disc bulge and facet joint arthropathy result in mild spinal canal and severe bilateral neural foraminal stenosis. L4-L5: Left central/foraminal disc protrusion which displaces the nerve roots. Facet joint arthropath y result in severe spinal canal and severe bilateral neural foraminal stenosis. L5-S1: Disc bulge and facet joint arthropathy result in severe spinal canal and severe bilateral neur al foraminal stenosis. No significant spinal canal or neural foraminal stenosis in the remainder of the visualized levels. Other findings: None. IMPRESSION: 1. Severe L5-S1 spinal canal stenosis secondary disc osteophyte complex and facet joint arthropathy. 2. L4-L5 left central disc protrusion displaces the nerve roots. 3. L2-L3 central disc protrusion present with mild displacement of the roots. 4. Multilevel disc degeneration with associated osteoarthritic changes. Neural foraminal stenosis wo rse at L5-S1 with severe bilateral. L4-L5 with severe bilateral. L3-L4 severe bilateral. L2-L3 with s evere bilateral.
== END | disposition home or self-care (01) ==
LOC: RADMRIMAIN 12:30
PROVIDERS: ATTEND Psychiatry & Neurology Neurology
DX: M48.061 Spinal stenosis, lumbar region without neurogenic claudication (principal); M25.78 Osteophyte, vertebrae; M51.26 Other intervertebral disc displacement, lumbar region; M51.36 Other intervertebral disc degeneration, lumbar region; M47.816 Spondylosis without myelopathy or radiculopathy, lumbar region
CPT/HCPCS: 72148